=== PATIENT | female | born 1950 | race Caucasian/White ===

== ENCOUNTER 2018-11-24 17:33 | Observation (INO) ==
[2018-11-24] MEDS ORDERED: NITROGLYCERIN ONE (18:34)
[2018-11-24] MEDS ORDERED: ASPIRIN ONE (18:34)
[2018-11-24] MEDS: NITROGLYCERIN SL PRN ×3 (18:35→19:07)
[2018-11-24] MEDS ORDERED: ASPIRIN PO ONE (18:41)
[2018-11-24 19:14] LABS: BASO# 0.01 X1000 (0.0-0.2); BASO% 0.2 % (0.0-0.8); EOS# 0.05 X1000 (0.0-0.7); HEMATOCRIT 38.3 % (37.0-47.0); LYMPH# 1.39 X1000 (1.2-3.4); LYMPH% 27.4 % (20.5-51.1); MCHC 33.9 g/dL (33-37); MCV 82.4 FL (81-99); MONO# 0.45 X1000 (0.11-0.59); MONO% 8.9 % (1.7-9.3); MPV 11.4 FL (7.4-10.4); NEUT# 3.18 X1000 (1.4-6.5); NEUT% 62.5 % (42.2-75.2); PLT 278 X1000 (130-400); RBC 4.65 XMIL (4.2-5.4); WBC 5.08 X1000 (4.8-10.8)
[2018-11-24 19:37] LABS: AGAP 17; ALB/GLOB RATIO 1.8; ALBUMIN 4.9 g/dL (3.5-5.0); ALKALINE PHOSPHATASE 85 U/L (32-104); BUN 13 mg/dL (8-22); CALCIUM 9.7 mg/dL (8.8-10.2); CHLORIDE 97 mmol/L (98-107); COSMO 275; CREATININE 0.6 mg/dL (0.5-0.9); ESTIMATED GFR > 60; GLUCOSE 118 mg/dL (70-104); GOT 24 U/L (10-30); GPT 14 U/L (10-36); POTASSIUM 3.8 mmol/L (3.5-5.1); SODIUM 137 mmol/L (136-145); TCO2 23 mmol/L (25-35); TOTAL BILIRUBIN 0.29 mg/dL (0.20-1.00); TOTAL PROTEIN 7.7 g/dL (6.3-8.3)
--- NOTE | 2018-11-24 19:44 | Diag Imaging Result Doc PS360 ---
EXAM: CHEST-1 VIEW HISTORY: rm 13 cp TECHNIQUE: Chest single view COMPARISON: 01/11/2013 FINDINGS: The lungs are well expanded. The heart is not enlarged. The vessels are not distended. There are no infiltrates. No effusion identified. IMPRESSION: Negative exam. Electronically signed by Juan F Goldman 11/24/2018 7:41 PM
--- NOTE | 2018-11-24 20:36 | Diag Imaging Result Doc PS360 ---
EXAM: CT HEAD W/O CONTRAST HISTORY: rm 13 AMS TECHNIQUE: CT head without contrast COMPARISON: 11/16/2018 FINDINGS: No parenchymal hemorrhage. No epidural or subdural hematoma. No subarachnoid hemorrhage. Mild chronic microvascular ischemic changes similar to the prior exam. No mass identified on this noncontrasted exam. No hydrocephalus. No sinus opacification. IMPRESSION: No hemorrhage. No change. This exam was performed using automated exposure control, adjustment of mA or kV according to patient size, and/or use of iterative reconstruction technique. Electronically signed by Juan F Goldman 11/24/2018 8:33 PM
[2018-11-24 21:48] LABS: URINE SOURCE CLEAN CATCH
[2018-11-24 22:25] LABS: BILIRUBIN URINE NEGATIVE (NEGATIVE); BLOOD URINE NEGATIVE (NEGATIVE); COLOR YELLOW; GLUCOSE URINE NEGATIVE (NEGATIVE); KETONE URINE 100 mg/dL (NEGATIVE); LEUKOCYTES URINE SMALL (NEGATIVE); NITRITE URINE NEGATIVE (NEGATIVE); PROTEIN URINE NEGATIVE (NEGATIVE); SP GRAVITY URINE 1.012; TURBIDITY URINE CLEAR (CLEAR); UROBILINOGEN URINE NORMAL (NORMAL)
[2018-11-24 22:26] LABS: UR EPITHELIAL CELLS <10 /HPF (<10); URINE BACTERIA NEGATIVE /HPF; URINE RBC <10 /HPF (<10); URINE WBC <10 /HPF (<10)
--- NOTE | 2018-11-24 23:31 | PROVIDER DOCUMENTATION ---
This chart was entered by Aleksandra Olvera Scribe, acting as scribe for Carrington Nava CRNP. HPI-Cardiac General - General Chief Complaint: Palpitations Stated Complaint: HEART RACING,CONFUSED,SWEATING Time Seen by Provider: 11/24/18 18:58 Source: patient Allergies/Adverse Reactions: Patient Allergies Allergy/AdvReac Type Severity Reaction Status Date / Time meperidine HCl * Allergy Intermediate NAUSEA Verified 01/12/13 02:55 [From Demerol] codeine [Codeine] Allergy Unknown Unknown Verified 01/11/13 20:19 Home Medications: Home Medication List Medication Instructions Recorded Confirmed Last Taken Type Amlodipine/Valsartan [Exforge 1 each PO DAILY 01/12/13 01/12/13 06/08/13 08:00 History 5/160] Clonazepam [Klonopin] 0.5 mg PO QAM 01/12/13 01/12/13 06/08/13 08:00 History Clonazepam [Klonopin] 1 mg PO HS 01/12/13 01/12/13 06/07/13 21:00 History Nebivolol [Bystolic] 5 mg PO DAILY 01/12/13 01/12/13 06/08/13 08:00 History Escitalopram [Lexapro] 20 mg PO QAM #0 tablet 01/14/13 06/08/13 08:00 Rx Iron Carbonyl/Ascorbic Acid 1 each PO DAILY #30 tablet 06/13/13 Unknown Rx [Icar-C] Lactobacillus Rhamnosus GG 1 each PO BID #60 capsule 06/13/13 Unknown Rx [Culturelle] Metronidazole [Flagyl] 500 mg PO TID #30 tablet 06/13/13 Unknown Rx Omeprazole [Prilosec] 40 mg PO BID #60 capsule. 06/13/13 Unknown Rx - History of Present Illness-Cardiac Nature of Presenting Problem: Pt is 68/F presenting to ED w/ HTN and tachycardia. at bedside reports that when taken at home her bp was 199/102 and her HR was 144. She has been given 3 doses of nitro in the last 20 minutes. reports that she started becoming confused yesterday and that today it has gotten worse. Pt has hx of HTN and low sodium, was in the ED recently for hyponatremia. Pt also has hx of anxiety Quality of Pain: reports: none Severity in ED: moderate Onset/Duration: this afternoon Timing: still present Context/Activities at Onset: reports: none Modifying Factors: improves with: nothing Palpitation Quality: fast/pounding heart beat History of arrythmia: reports: none Nitro Today/Relief: reports: 0.4 mg x 3 Aspirin Treatment Today: reports: no aspirin today Prior Chest Pain/Cardiac Workup: reports: no prior chest pain Associated Symptoms: reports: denies symptoms. denies: nausea, shortness of breath, vomiting Review of Systems - Adult - REVIEW OF SYSTEMS - ADULT Constitutional: reports: no symptoms reported, see HPI. denies: chills, fever Eyes: reports: no symptoms reported Ears, Nose, Mouth & Throat: reports: no symptoms reported Cardiovascular: reports: see HPI, palpitations. denies: chest pain, edema, heart murmur, irregular heart rate Respiratory: reports: no symptoms reported. denies: cough Gastrointestinal: reports: no symptoms reported. denies: abdominal pain, nausea, vomiting Genitourinary: reports: no symptoms reported Musculoskeletal: reports: no symptoms reported Integumentary: reports: no symptoms reported Neurological: reports: no symptoms reported. denies: dizziness/vertigo, headache/migraines, slurred speech Psychiatric: denies: no symptoms reported Endocrine: reports: no symptoms reported Hematologic/Lymphatic: reports: no symptoms reported Allergic/Immunologic: reports: no symptoms reported All Other Systems: Reviewed and Negative Past History - Adult - PAST MEDICAL HISTORY-ADULT Review of Records: reports: Old Records Reviewed, Nursing Assessment Review, Medications Reviewed, Social history reviewed & non-contributory. Major Childhood Illnesses: reports: denies history Cardiovascular: reports: HTN Respiratory: reports: denies history Gastrointestinal: reports: denies history Obstetrical/Gynecological: reports: denies history Genitourinary: reports: dialysis Musculoskeletal: reports: denies history Neurological: reports: denies history Endocrine/Immune: reports: denies history Other Conditions: reports: denies history - IMMUNIZATION STATUS Childhood Immunizations: See Nurse Assessment Flu Vaccine: See Nurse Assessment - FAMILY HISTORY Family History: reviewed, not pertinent - SOCIAL HISTORY Smoking: denies, non-smoker Substance Use: none/never Alcohol Use Frequency: never Living Situation: family Physical Exam-General - PHYSICAL EXAM-ADULT Initial Vital Signs Reviewed: Yes - CONSTITUTIONAL General Appearance: appears well, alert, no apparent distress - EYES Eyes: PERRL/EOMI, pink conjunctivae - HEAD, EARS, NOSE, MOUTH & THROAT HENMT: moist mucous membranes - RESPIRATORY Respiratory: chest non-tender, lungs clear, normal breath sounds, no pleuratic chest pain, no respiratory distress, no accessory muscle use - CARDIOVASCULAR Cardiovascular: normal peripheral pulses, tachycardia (144). negative: no edema, no gallop, no JVD, no murmur - LYMPHATIC Lymphatic: no adenopathy - MUSCULOSKELETAL Extremity: normal range of motion, non-tender, normal gait, normal inspection - SKIN Integumentary: normal color, warm/dry - NEUROLOGIC Neurologic: grossly normal - PSYCHIATRIC Psych/Mental Status: normal mood/affect, normal thought content, normal thought process, other (Pt knew where she was but could not answer who the president was and was unsure of the year) Progress - PLAN OF CARE/RESULTS Progress/Plan/Lab Results: Vital Signs - 8 hr 11/24/18 17:42 11/24/18 18:37 11/24/18 19:39 Temperature 97.5 F L 98.2 F Pulse Rate 144 H 106 H 134 H Respiratory Rate 20 20 16 Blood Pressure 166/102 196/102 158/91 O2 Sat by Pulse Oximetry 96 98 94 L 11/24/18 19:43 11/24/18 19:56 11/24/18 20:00 Temperature Pulse Rate 108 H 103 H 105 H Respiratory Rate 22 18 24 Blood Pressure 161/87 O2 Sat by Pulse Oximetry 96 96 99 11/24/18 20:01 11/24/18 20:10 11/24/18 20:32 Temperature Pulse Rate 104 H 99 H 90 Respiratory Rate 19 20 19 Blood Pressure 164/86 152/85 O2 Sat by Pulse Oximetry 98 97 98 11/24/18 20:40 11/24/18 20:50 11/24/18 21:00 Temperature Pulse Rate 92 H 98 H 105 H Respiratory Rate 18 16 15 Blood Pressure O2 Sat by Pulse Oximetry 99 99 100 11/24/18 21:02 11/24/18 21:05 11/24/18 21:10 Temperature Pulse Rate 93 H 94 H 115 H Respiratory Rate 16 19 23 Blood Pressure 200/95 104/51 O2 Sat by Pulse Oximetry 100 99 100 11/24/18 21:20 11/24/18 21:32 11/24/18 21:40 Temperature Pulse Rate 90 94 H 79 Respiratory Rate 16 18 16 Blood Pressure 168/83 O2 Sat by Pulse Oximetry 98 99 100 11/24/18 21:50 11/24/18 22:00 11/24/18 22:02 Temperature Pulse Rate 82 94 H 108 H Respiratory Rate 22 19 15 Blood Pressure 157/90 O2 Sat by Pulse Oximetry 98 98 98 Laboratory Results - last 24 hr 11/24/18 11/24/18 11/24/18 17:15 17:15 17:15 WBC 5.08 RBC 4.65 Hgb 13.0 Hct 38.3 MCV 82.4 MCH 28.0 MCHC 33.9 RDW Std Deviation 13.0 Plt Count 278 MPV 11.4 H Immature Gran % (Auto) 0.0 Neut % (Auto) 62.5 Lymph % (Auto) 27.4 [place] % (Auto) 8.9 Eos % (Auto) 1.0 Baso % (Auto) 0.2 Immature Gran # (Auto) 0.00 Neut # (Auto) 3.18 Lymph # (Auto) 1.39 [place] # (Auto) 0.45 Eos # (Auto) 0.05 Baso # (Auto) 0.01 Sodium Potassium Chloride Carbon Dioxide Anion Gap BUN Creatinine Estimated GFR/1.73 m2 BUN/Creatinine Ratio Glucose Calculated Osmolality Calcium Total Bilirubin AST ALT Alkaline Phosphatase Creatine Kinase 107 Troponin T < 0.010 Kib-G-Mamyuhpzxbr Pept Total Protein Albumin Globulin Albumin/Globulin Ratio Urine Source Urine Color Urine Turbidity Urine pH Ur Specific [place] Urine Protein Ur Glucose (Stick) Ur Ketones (Stick) Urine Blood Urine Nitrite Urine Bilirubin Urobilinogen Dipstick Urine Leukocytes Urine WBC (Auto) Urine RBC (Auto) U Epithel Cells (Auto) Urine Bacteria (Auto) 11/24/18 11/24/18 11/24/18 17:15 17:15 21:30 WBC RBC Hgb Hct MCV MCH MCHC RDW Std Deviation Plt Count MPV Immature Gran % (Auto) Neut % (Auto) Lymph % (Auto) [place] % (Auto) Eos % (Auto) Baso % (Auto) Immature Gran # (Auto) Neut # (Auto) Lymph # (Auto) [place] # (Auto) Eos # (Auto) Baso # (Auto) Sodium 137 Potassium 3.8 Chloride 97 L Carbon Dioxide 23 L Anion Gap 17 BUN 13 Creatinine 0.6 Estimated GFR/1.73 m2 > 60 BUN/Creatinine Ratio 22 Glucose 118 H Calculated Osmolality 275 Calcium 9.7 Total Bilirubin 0.29 AST 24 ALT 14 Alkaline Phosphatase 85 Creatine Kinase Troponin T Qbb-G-Azrqljwbwnv Pept 460 H Total Protein 7.7 Albumin 4.9 Globulin 2.8 Albumin/Globulin Ratio 1.8 Urine Source CLEAN CATCH Urine Color YELLOW Urine Turbidity CLEAR Urine pH 6.0 Ur Specific [place] 1.012 Urine Protein NEGATIVE Ur Glucose (Stick) NEGATIVE Ur Ketones (Stick) 100 A Urine Blood NEGATIVE Urine Nitrite NEGATIVE Urine Bilirubin NEGATIVE Urobilinogen Dipstick NORMAL Urine Leukocytes SMALL A Urine WBC (Auto) <10 Urine RBC (Auto) <10 U Epithel Cells (Auto) <10 Urine Bacteria (Auto) NEGATIVE Orders Category Date Time Status IV Insertion ORDERED Care 11/24/18 19:30 Completed Update & Confirm Home Medicati ROUTINE Care 11/24/18 23:22 Active CHEST-1 VIEW [RAD] Stat Exams 11/24/18 18:[address] HEAD W/O CONTRAST [CT] Stat Exams 11/24/18 19:11 Completed CBC WITH ELECTRONIC DIFF [HEME] Stat Lab 11/24/18 17:15 Completed CK PROFILE [SP CHEM] Stat Lab 11/24/18 17:15 Completed COMPREHENSIVE METABOLIC PANEL [CHEM] Stat Lab 11/24/18 17:15 Completed PRO B-NATRIURETIC PEPTIDE Stat Lab 11/24/18 17:15 Completed TROPONIN T Stat Lab 11/24/18 17:15 Completed UA [URINALYSIS W/POSS RFLX CULT] [URINALYSIS] Stat Lab 11/24/18 21:30 Completed Aspirin Med 11/24/18 18:34 Discontinued 325 mg .ROUTE .STK-MED ONE Aspirin Med 11/24/18 18:41 Discontinued 325 mg PO NOW ONE Nitroglycerin Sl [Nitroglycerin] Med 11/24/18 18:34 Discontinued 0.4 mg .ROUTE .STK-MED ONE Nitroglycerin Sl [Nitroglycerin] Med 11/24/18 18:42 Active 0.4 mg SL Q5M PRN PRN EKG [EKG] Stat Ther 11/24/18 18:44 Ordered I discussed with Dr. Cifuentes the pt PE, EKG, CT, and labs. He agreed to admit the patient. Result Diagrams: 11/24/18 17:15 03/06/19 17:15 - EKG 1 Time of EKG reading by physician:: 17:54 EKG Read and Signed by:: Kirk Green EKG Interpretation (*Must complete 3 of following elements*): Abnormal (sinus tachycardia, possible left atrial enlargement Septal infarct, age undetermined, Abnormal ECG) [place]: normal QRS: normal - XRAY 1 XRAY: Bilateral XRAY Study: Chest Impression: Normal (IMPRESSION: Negative exam. Electronically signed by Juan F Goldman 11/24/2018 7:41 PM [id number]) - CT/MRI 1 CT Study: Head Impression: Normal (MPRESSION: No hemorrhage. No change. This exam was performed using automated exposure control, adjustment of mA or kV according to patient size, and/or use of iterative reconstruction technique. Electronically signed by Juan F Goldman 11/24/2018 8:33 PM [id number]) Departure - Departure Date of Disposition Decision: 11/24/18 Time of Disposition Decision: 23:28 DIAGNOSIS: Altered mental status, Tachycardia Disposition: ADMITTED INPATIENT 09 Certified Medical Emergency: Emergent Condition: Serious Referrals and Follow-Ups: Alok Feliciano DO [Primary Care Provider] - - Critical Care Note This patient required my direct & personal management of CC.: No Attestation - Physician/ LAVELLE Attestation Patient care was provided by Advanced Practice Provider:: Yes Advanced Practice Provider:: Carrington Nava Advanced Practice Provider documentation review:: The Mid-level provider documentation, treatment plan and medical decision making was reviewed by the physician who agrees with all treatment and medical decision making by the [facility]. The physician spent face to face time with patient:: No Advanced Practice Provider documentation review:: Supervising physician onsite and consulted in the evaluation and care of this patient. The physician did not have a face to face encounter with the patient. This chart was documented by the indicated scribe, (Aleksandra Olvera Scribe) and accurately reflects the services I performed and decisions made by Elijah frias Terry L., CRNP, as attested by the provider's signature.
--- NOTE | 2018-11-24 23:36 | ED EKG INTERP ---
This chart was entered by Aleksandra Olvera Scribe, acting as scribe for Carrington Nava CRNP. EKG Interpretation - EKG Time of EKG reading by physician:: 23:15 EKG Read and Signed by:: Prisca Miller EKG Interpretation (*Must complete 3 of following elements*): Abnormal (sinus rhythm with 1st degree AV block. Septal infarct, age undetermined) Rate: 91 Rhythm: sinus rhythm [place]: normal QRS: normal Attestation - Physician/ LAVELLE Attestation Patient care was provided by Advanced Practice Provider:: Yes Advanced Practice Provider:: Carrington Nava Advanced Practice Provider documentation review:: The Mid-level provider documentation, treatment plan and medical decision making was reviewed by the physician who agrees with all treatment and medical decision making by the [facility]. The physician spent face to face time with patient:: No Advanced Practice Provider documentation review:: Supervising physician onsite and consulted in the evaluation and care of this patient. The physician did not have a face to face encounter with the patient. This chart was documented by the indicated scribe, (Aleksandra Olvera Scribe) and accurately reflects the services I performed and decisions made by , Carrington Nava CRNP, as attested by the provider's signature.
[2018-11-24] MEDS ORDERED: ATIVAN IV ONE (23:58)
[2018-11-25] MEDS ORDERED: LOPRESSOR IV ONE (00:27)
[2018-11-25] MEDS ORDERED: ATIVAN IV PRN (00:35)
[2018-11-25] MEDS ORDERED: HALDOL IV ONE (01:28)
[2018-11-25] MEDS ORDERED: TYLENOL PO PRN (02:26)
[2018-11-25] MEDS ORDERED: ZOFRAN IV PRN (02:26)
--- NOTE | 2018-11-25 05:43 | HISTORY AND PHYSICAL ---
CHIEF COMPLAINT: Altered mental status. HISTORY OF PRESENT ILLNESS: Briefly, Ms. Castanon is a 68-year-old female who has a history of major depressive disorder with previous admissions to inpatient psych facilities, hypertension, depression, GERD, recurrent electrolyte disorders, seizure disorder with the last seizure being in 1999, and fibromyalgia. She is alert and oriented x3, however, she is displaying signs of confusion. She states that she is not suicidal or homicidal. She does feel anxious. She states that she has taken all of her psych medications. Her is at the bedside who states she never misses doses of her psych medications, but he feels that if she does not have fairly quick psych intervention it will progress like it has in the past to her being angry and somewhat violent and having to have a large inpatient psychiatric stay. She will be admitted and observed with a [facility] consultation tomorrow morning. PAST MEDICAL HISTORY: See above. PREVIOUS SURGICAL HISTORY: Left total knee, , bladder sling. ALLERGIES: Demerol and codeine. SOCIAL HISTORY: No tobacco, alcohol or illicit drugs. She does have a history of abusing diet pills in the past. HOME MEDICATIONS: Tramadol 50 mg p.o. b.i.d., clonazepam 0.5 mg p.o. q.a.m. and 1 mg p.o. at bedtime, Lexapro 20 mg p.o. q.a.m., losartan/hydrochlorothiazide 100/25 one p.o. daily, metformin 500 mg p.o. daily, metoprolol 50 mg p.o. daily, omeprazole 40 mg p.o. daily. REVIEW OF SYSTEMS: Fourteen-point review of systems conducted with the patient. She states that she feels like her heart has palpitations, otherwise denies complaints. Other pertinent positives for admission are listed above in the HPI. All other systems are reviewed and negative. PHYSICAL EXAMINATION: VITAL SIGNS: Temperature 98.2, pulse 107, respirations 22, blood pressure 159/96, oxygen saturation 98% on room air. GENERAL: Alert and oriented x3, but otherwise confused, awake and alert, somewhat agitated on exam, in no acute distress. HEENT: Head is atraumatic, normocephalic. Pupils equal, round and reactive to light. Extraocular eye movements intact. Sclerae are anicteric. Conjunctivae are pink. Oral mucosa is moist. NECK: Supple, no JVD, no thyromegaly. Trachea is midline. No cervical lymphadenopathy. CARDIAC: S1, S2 appreciated. No murmurs, gallops, or rubs. Sinus tachycardia on monitor. LUNGS: Clear to auscultation bilaterally. No rhonchi, wheezes or rales. Symmetric rise and fall with respirations. ABDOMEN: Protuberant, soft, nondistended, nontender. Bowel sounds present in all 4 quadrants, normoactive. No pulsatile mass, no organomegaly. EXTREMITIES: No clubbing, cyanosis, or edema. Two-plus pedal pulses. GENITOURINARY: No bladder distention, otherwise deferred. SKIN: Warm, dry and intact. No acute lesions or rash. NEUROLOGICAL: Alert and oriented x3. No focal or motor deficits. Cranial nerves II through XII grossly intact. DIAGNOSTIC DATA: CT of the head: No acute intracranial process, mild chronic microvascular changes. Chest x-ray: Negative exam. LABORATORY DATA: CBC within normal limits. Glucose 118, chloride 97, carbon dioxide 23. Urine unremarkable. ASSESSMENT AND PLAN: 1. Sinus tachycardia. Will continue metoprolol, give dose of metoprolol IV [address] on telemetry on CICU. 2. Encephalopathy. This appears to be an acute psychosis related to psychiatric features, but cannot rule out temporal lobe epilepsy. She does apparently have a seizure disorder. Continue to monitor with neuro checks. Give Ativan as needed for agitation. Recommend if patient's symptoms do not improve consider MRI to rule out hippocampal sclerosis. 3. Seizure disorder. Continue home medications. See above. 4. Hypertension. Continue home medications. 5. Diabetes mellitus type 2. Continue metformin. Further recommendations per the patient's clinical course. Dictated by GINNA Glynn for Lucy Cifuentes MD Independent exam and assessment was discussed with and APPEALS WRITER. Likely psychiatric etiology (calmed down after Haldol and ativan given)however this could represent post ictal phase,especially seen in TLE patients. SSI and Metformin to be continued. cc: GINNA Gylnn MD Jeffrey A. Johnson, DO BONNIED
[2018-11-25 05:45] LABS: BASO# 0.01 X1000 (0.0-0.2); BASO% 0.2 % (0.0-0.8); EOS# 0.01 X1000 (0.0-0.7); EOS% 0.2 % (0.0-10.0); HEMOGLOBIN 11.8 g/dL (12.0-16.0); LYMPH# 1.04 X1000 (1.2-3.4); LYMPH% 16.5 % (20.5-51.1); MCH 27.9 PG (27-31); MCHC 33.7 g/dL (33-37); MCV 82.7 FL (81-99); MONO# 0.49 X1000 (0.11-0.59); MONO% 7.8 % (1.7-9.3); MPV 10.7 FL (7.4-10.4); NEUT# 4.75 X1000 (1.4-6.5); NEUT% 75.3 % (42.2-75.2); PLT 262 X1000 (130-400); RBC 4.23 XMIL (4.2-5.4); RDW 13.2 % (11.5-14.5)
[2018-11-25 06:08] LABS: AGAP 11; BUN 7 mg/dL (8-22); CALCIUM 8.4 mg/dL (8.8-10.2); CHLORIDE 105 mmol/L (98-107); COSMO 275; CREATININE 0.4 mg/dL (0.5-0.9); ESTIMATED GFR > 60; GLUCOSE 97 mg/dL (70-104); SODIUM 139 mmol/L (136-145); TCO2 23 mmol/L (25-35)
--- NOTE | 2018-11-25 07:14 | EKG Report ---
Test Performed on : 11/25/2018 06:49:12 AM Test Reason : chest pain Blood Pressure : / mmHG Vent. Rate : 088 BPM Atrial Rate : 088 BPM P-R Int : 220 ms QRS Dur : 084 ms QT Int : 386 ms P-R-T Axes : 024 -11 021 degrees QTc Int : 467 ms Sinus rhythm. with 1st degree AV block. Septal infarct (cited on or before 11-JAN-2013) Abnormal ECG When compared with ECG of 24-NOV-2018 23:10, (Unconfirmed) No significant change was found Unconfirmed Result
[2018-11-25] MEDS: NS 1,000 ML IV SCH (07:19)
--- NOTE | 2018-11-25 07:20 | EKG Report ---
Test Performed on : 11/24/2018 11:10:19 PM Test Reason : c/p Blood Pressure : / mmHG Vent. Rate : 091 BPM Atrial Rate : 091 BPM P-R Int : 242 ms QRS Dur : 086 ms QT Int : 364 ms P-R-T Axes : 053 -11 006 degrees QTc Int : 447 ms Sinus rhythm. with 1st degree AV block. Septal infarct (cited on or before 11-JAN-2013) Abnormal ECG When compared with ECG of 24-NOV-2018 17:54, (Unconfirmed) HI interval has increased Unconfirmed Result
--- NOTE | 2018-11-25 07:24 | EKG Report ---
Test Performed on : 11/24/2018 5:54:05 PM Test Reason : ED. NO EKG ORDER FOR MUSE Blood Pressure : / mmHG Vent. Rate : 117 BPM Atrial Rate : 117 BPM P-R Int : 182 ms QRS Dur : 082 ms QT Int : 312 ms P-R-T Axes : 036 -05 014 degrees QTc Int : 435 ms Sinus tachycardia. Possible Left atrial enlargement Septal infarct (cited on or before 11-JAN-2013) Abnormal ECG When compared with ECG of 11-JAN-2013 19:22, T wave inversion now evident in Inferior leads Unconfirmed Result
[2018-11-25] MEDS: LEXAPRO PO SCH (08:28)
[2018-11-25] MEDS: HYZAAR 50/12.5 MG PO SCH (08:28)
[2018-11-25] MEDS: GLUCOPHAGE XR PO SCH (08:28)
[2018-11-25] MEDS: PRILOSEC PO SCH (08:28)
[2018-11-25] MEDS: LOPRESSOR PO SCH (08:28)
[2018-11-25] MEDS: KLONOPIN PO SCH (08:28)
[2018-11-25] MEDS: FLOMAX PO SCH (08:28)
[2018-11-25] MEDS ORDERED: NORVASC PO SCH (09:45)
[2018-11-25] MEDS ORDERED: NORVASC ONE (10:13)
--- NOTE | 2018-11-25 10:26 | PROGRESS NOTE ---
DATE: 11/25/2018 SUBJECTIVE: This patient is lying comfortably in bed. She is answering all my questions. Vital signs stable, except for a little bit elevation of the blood pressure. I will add amlodipine to her medications once a day to see how she does. Her is at the bedside. As per the , she is 80% better compared with yesterday night. Apparently she was acting different. She has a history of psychosis and a history of seizures, but she has not had any seizure problem or psychotic problems for a lot of years. She came in with tachycardia, but now the heart rate has normalized and is sinus rhythm. Negative troponins. OBJECTIVE: Vital Signs: Temperature 98.4 degrees, pulse 84, respiratory rate 23, blood pressure 155/79, oxygen saturation 100% on room air. HEENT: Head normocephalic. No trauma. PERRLA. Neck: Supple. No JVD. No masses. Central trachea. Chest: Clear to auscultation. No wheezing. No rales. Abdomen: Soft, nontender, nondistended. No hepatosplenomegaly. Extremities: No edema. No clubbing. No cyanosis. Neurological examination: The patient is alert. She is oriented x3. She is following commands. She is answering my questions. LABORATORY: WBC 6.3, hemoglobin 11.8, hematocrit 35, platelets 264. Sodium 139, potassium 4, chloride 105, bicarbonate 23. BUN 7, creatinine 0.4, glucose 97, calcium 8.4, magnesium 2. TSH 2.39. ASSESSMENT AND PLAN: 1. Sinus tachycardia, resolved. Continue with the same management. Continue to monitor this patient in the [facility], at this moment sinus rhythm and normally the 80s. 2. Encephalopathy. This appears to be related to an acute psychosis related to psychiatric issues. She has a past medical history of psychosis and seizures as well. As per the , she is much better. She slept at least 4 to 5 hours, and when she woke up she was feeling better and she was as per the 80% better. I will ask Neurology Department to evaluate this patient to rule out any seizure disorder. Once the patient is better or able to be discharged, I will ask Psychiatry Department to evaluate this patient to see if she meets criteria for inpatient or monitor as an outpatient. 3. Seizure disorder as above. The last time she had a seizure disorder was a long time ago. 4. Hypertension. I will continue with her home medications, but I will add amlodipine to see how she does. I will monitor. 5. Type 2 diabetes. Continue with metformin. cc: MD Alok Crowell, DO
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
[2018-11-25] MEDS ORDERED: KLONOPIN PO SCH (21:00)
[2018-11-25] MEDS: NORVASC PO SCH (21:06)
[2018-11-26 05:11] LABS: BASO# 0.01 X1000 (0.0-0.2); BASO% 0.2 % (0.0-0.8); EOS# 0.07 X1000 (0.0-0.7); EOS% 1.4 % (0.0-10.0); HEMATOCRIT 36.8 % (37.0-47.0); HEMOGLOBIN 12.3 g/dL (12.0-16.0); LYMPH# 1.56 X1000 (1.2-3.4); LYMPH% 30.4 % (20.5-51.1); MCHC 33.4 g/dL (33-37); MCV 83.8 FL (81-99); MONO# 0.47 X1000 (0.11-0.59); MONO% 9.2 % (1.7-9.3); MPV 10.9 FL (7.4-10.4); NEUT# 3.02 X1000 (1.4-6.5); NEUT% 58.8 % (42.2-75.2); PLT 267 X1000 (130-400); RBC 4.39 XMIL (4.2-5.4); RDW 13.5 % (11.5-14.5); WBC 5.13 X1000 (4.8-10.8)
[2018-11-26 05:32] LABS: AGAP 12; BUN 5 mg/dL (8-22); CALCIUM 8.8 mg/dL (8.8-10.2); CHLORIDE 104 mmol/L (98-107); COSMO 274; CREATININE 0.5 mg/dL (0.5-0.9); ESTIMATED GFR > 60; GLUCOSE 115 mg/dL (70-104); POTASSIUM 3.6 mmol/L (3.5-5.1); SODIUM 138 mmol/L (136-145); TCO2 22 mmol/L (25-35)
--- NOTE | 2018-11-26 08:17 | PROGRESS NOTE ---
DATE: 11/26/2018 SUBJECTIVE: The patient is lying comfortably in bed. As per the patient, she spent a good night, she slept well. No more episodes of confusion or mental status changes. Patient has been evaluated by Neurology Department. We do not believe this patient had a seizure disorder. As per the , she acted like the episode that she has been having before a long time ago like psychosis, but she is much better now. Upon admission, the blood pressure was elevated inclusive up to 200, one night it was 160s. Now, it has been more stable between 140s and 150s. I added already amlodipine to her medications. Today, I just will continue with the same management. She is on losartan, hydrochlorothiazide, metoprolol and now amlodipine. OBJECTIVE: Vital Signs: Temperature 98.4 degrees, pulse 80, respiratory rate 18, blood pressure 156/72, and oxygen saturation 98 percent on room air. HEENT: Head normocephalic. No trauma. PERRLA. Neck: Supple. No JVD. No masses. Central trachea. Chest: Clear to auscultation. No wheezing. No rales. Abdomen: Soft, nontender, and nondistended. No hepatosplenomegaly. Extremities: No edema. No clubbing. No cyanosis. Neurological: The patient is alert. She is oriented x3. She is following commands. She is answering my questions. LABORATORY: WBC 5.1, hemoglobin 12.3, hematocrit 36.8, and platelets 267,000. Sodium 138, potassium 3.6, chloride 104, bicarbonate 22, BUN 5, creatinine 0.5, and glucose 115. Calcium 8.8. ASSESSMENT AND PLAN: 1. Sinus tachycardia, resolved. Continue with the same management. 2. Encephalopathy. As per the , this appeared to be related to an acute psychosis related to her psychiatric issues. She has a past medical history of psychosis and seizures as well. I do not believe she had a seizure disorder. She has been evaluated by Neurology Department, and they do not believe that she had a seizure disorder either. Head CT did not show any acute abnormality. Normal chest x-ray. It has been requested an evaluation by Psychiatric Department. 3. Seizure disorder. The last time she had a seizure disorder, was a long time ago. I do not think this is the problem at this moment. 4. Hypertension. Continue with the same management for now. 5. Type 2 diabetes. Continue with the metformin stable. 6. I will wait for the psychiatric evaluation recommendations. Probably, this patient will go home today after this evaluation. She is medically stable. cc: Imtiaz Puentes MD
[2018-11-26] MEDS: NORVASC PO SCH (08:49)
[2018-11-26] MEDS: PRILOSEC PO SCH (08:49)
[2018-11-26] MEDS: LOPRESSOR PO SCH (08:50)
[2018-11-26] MEDS: LEXAPRO PO SCH (08:50)
[2018-11-26] MEDS: KLONOPIN PO SCH (08:50)
[2018-11-26] MEDS: HYZAAR 50/12.5 MG PO SCH (08:50)
[2018-11-26] MEDS: FLOMAX PO SCH (08:50)
[2018-11-26] MEDS: GLUCOPHAGE XR PO SCH (08:50)
[2018-11-26] MEDS: NS 1,000 ML IV SCH ×2 (10:22→11:03)
[2018-11-26 10:35] LABS: UR AMPHETAMINES QUAL NONE DETECTED (NONE DETECT); UR BARBITUATES QUAL NONE DETECTED (NONE DETECT); UR BENZODIAZEPIN QUAL NONE DETECTED (NONE DETECT); UR CANNABINOIDS QUAL NONE DETECTED (NONE DETECT); UR COCAINE QUAL NONE DETECTED (NONE DETECT); UR METHADONE QUAL NONE DETECTED (NONE DETECT); UR OPIATES QUAL NONE DETECTED (NONE DETECT); UR OXYCODONE QUAL NONE DETECTED (NONE DETECT); UR PCP QUAL NONE DETECTED (NONE DETECT)
[2018-11-26 12:11] VITALS: BP 134/63
--- NOTE | 2018-11-27 13:54 | DISCHARGE SUMMARY ---
ADMISSION DATE: 11/25/2018 DISCHARGE DATE: 11/26/2018 DISCHARGE DIAGNOSES: 1. Encephalopathy, resolved. 2. Sinus tachycardia, resolved. 3. History of seizure disorder. 4. History of psychosis. 5. Hypertension. 6. Type 2 diabetes. HOSPITAL COURSE: A 68-year-old female with a past medical history of major depressive disorder, with previous admissions to an inpatient psych facility due to apparently also psychoses, hypertension, depression GERD recording electrolyte disorders, seizure disorder, with the last seizure being in 1999, fibromyalgia. Admitted on 11/25/2018. At the moment of the admitting doctor evaluation. She was oriented x3 and alert. However, she was showing some signs of confusion. She was not suicidal or homicidal. She was anxious. As per the patient and the which was at the bedside, she was taking her medications as prescribed, but the felt if she does not have a psychiatric intervention probably she will get worse,angry and violent and having to have a large inpatient psychiatric stay. She was admitted and placed in the [facility] unit. She was tachycardic. She received metoprolol, placed on telemetry. The next day, I evaluated this patient and she was doing much better. As per the , she was recovered by 80%. She was completely alert, she was oriented x3. She was following commands. She was eating fine. No electrolyte imbalance on 11/25/2018. As per the , this patient had some kind of viral infection, like runny nose, and she took some [id number] medication apparently, but I am not quite sure, and that probably triggered those symptoms. Neurology Department evaluated this patient. They did not recommend anything new, but continued with her treatment. Head CT did not show any acute process. I requested a psychiatric evaluation and they recommended to follow up this patient as an outpatient. They gave them some information of where to go and get the appointment. She seems to be doing pretty good today. As I mentioned before, head CT was negative, as well as the chest x-ray. No signs of infection. No leukocytosis. No electrolyte imbalance. No acute kidney injury. Toxicology did not show any drug involved. Urinalysis negative. She will be discharged home. We will follow the recommendations of Psychiatry Department. The at the bedside agreed with the management. Since the blood pressure was a little bit elevated mostly at the beginning, I have placed this patient on amlodipine on top of her current medications. She seems to be tolerating that very well. PHYSICAL EXAMINATION: Vital signs: Temperature 99 degrees, pulse 68, respiratory rate 15, blood pressure 134/63, oxygen saturation 95% on room air. HEENT: Head normocephalic. No trauma. PERRLA. Neck: Supple. No JVD. No masses. Central trachea. Chest: Clear to auscultation. No wheezing. No rales. Abdomen: Soft, nontender, nondistended. No hepatosplenomegaly. Extremities: No edema. No clubbing. No cyanosis. Neurological examination: The patient is alert and oriented x3. No focal deficits. LABORATORY: WBC 5.1, hemoglobin 12.3, hematocrit 36.8, platelet 267. Sodium 138, potassium 3.6, chloride 104, bicarbonate 22. BUN 5, creatinine 0.5, glucose 115, calcium 8.8. DISCHARGE MEDICATIONS: Tramadol 50 mg p.o. b.i.d. as needed, tamsulosin 0.4 mg p.o. daily, omeprazole 40 mg p.o. capsule daily, metoprolol 50 mg p.o. daily metformin 500 mg p.o. q. 24 hours, losartan/hydrochlorothiazide 100/25 mg p.o. daily, escitalopram 20 mg p.o. q.a.m. clonazepam 0.5 mg p.o. q.a.m. and 1 mg p.o. at bedtime, amlodipine 5 mg p.o. b.i.d. TIME DISCHARGING THIS PATIENT: 35 minutes. cc: Imtiaz Puentes MD
== END 2018-11-26 15:06 | disposition home or self-care (01) ==
LOC: 3S 17:33 → ED 17:33 → SUATTDRO 11-25 01:50
PROVIDERS: ATTEND Internal Medicine
CPT/HCPCS: 70450; 71010; 71045; 80048; 80053; 80101; 80301; 80307; 80320; 80324; 80345; 80346; 80353; 80358; 80361; 80365; 81001; 82055; 82550; 83735; 83880; 83992; 84443; 84484; 85025; 87088; 93005; 96374; 96375; 99285; A9270; G0378; G0431; G0434; G0479; G0480; G6040; J1630; J2060; J7030